=== PATIENT | female | born 1955 | race Caucasian/White ===

== ENCOUNTER 2017-01-13 14:01 | Emergency (ER) | payer SELFPAY ==
[~2017-01-13] VITALS: Ht 170.2 cm; Wt 100.8 kg
[2017-01-13 14:14] VITALS: BP 183/89; PULSE 73; RESP 18; TEMP 97.9; O2SAT 95
[2017-01-13] MEDS ORDERED: BISO10TA5 PO (14:14)
[2017-01-13] MEDS ORDERED: PLAV75TA29 PO (14:14)
[2017-01-13] MEDS ORDERED: AMLO2.5T PO (14:14)
[2017-01-13] MEDS ORDERED: ZANT150T2 PO (14:14)
[2017-01-13] MEDS ORDERED: SODIUM CHLORIDE 0.9% FLUSH 10 ML FLUSH IVF PRN (14:30)
[2017-01-13 14:33] VITALS: O2SAT 100
--- NOTE | 2017-01-13 14:33 | PD ---
HPI Chief Complaint: Chest Pain Time Seen by Provider: 14:20 Travel History International Travel<30 days: No Contact w/Intl Traveler<30days: No Traveled to known affect area: No History of Present Illness HPI The patient was seen and examined in the presence of the nurse. Patient complains of chest pain. Patient was feeling fine today and then had a spell of chest pain over the center sternum area. It lasted 3 minutes and resolved. It is not returned. No shortness of breath or productive cough or chest wall injury or fever or presyncopal symptoms. She feels fine now. She does have history of anxiety problems. Pain was described as a brief sharp stabbing type pain. Pain is not pleuritic. She has no history of cardiac or pulmonary disease. She had a normal stress test 2 years ago per her report. No alleviating factors to the chest pain. It resolved spontaneously. Severity was mild to moderate PFSH Past Medical History Hx Anticoagulant Therapy: Yes Cardiovascular Problems: Yes Cerebrovascular Accident: Yes Diminished Hearing: No Hypertension: Yes Immunizations Current: Yes Tetanus Vaccination: Unknown Influenza Vaccination: Yes ?: Not Past Surgical History Cholecystectomy: Yes Social History Alcohol Use: No Tobacco Use: No Substance Use: No Allergies-Medications (Allergen,Severity, Reaction): Coded Allergies: No Known Allergies (Unverified , 01/13/17) Reported Meds & Prescriptions Reported Meds & Active Scripts Active Reported Zantac (Ranitidine HCl) 150 Mg Tab 150 Mg PO BID Amlodipine (Amlodipine Besylate) 2.5 Mg Tab 2.5 Mg PO DAILY Bisoprolol (Bisoprolol Fumarate) 10 Mg Tab 10 Mg PO DAILY Plavix (Clopidogrel Bisulfate) 75 Mg Tab 75 Mg PO DAILY Review of Systems General / Constitutional: No: Fever Eyes: No: Visual changes HENT: No: Headaches Cardiovascular: Positive: Chest Pain or Discomfort Respiratory: No: Shortness of Breath Gastrointestinal: No: Abdominal Pain Genitourinary: No: Dysuria Musculoskeletal: No: Pain Skin: No Rash Neurologic: No: Weakness Psychiatric: Positive: Anxiety, No: Depression Endocrine: No: Polydipsia Hematologic/Lymphatic: No: Easy Bruising Physical Exam Narrative GENERAL: Well-nourished, well-developed patient in no apparent distress. SKIN: Focused skin assessment reveals no rash and nodules. Skin is Warm and dry. HEAD: Atraumatic. Normocephalic. EYES: Pupils equal and round. No scleral icterus. No injection or drainage. ENT: No nasal bleeding or discharge. Mucous membranes pink and moist. NECK: Trachea midline. No JVD. CARDIOVASCULAR: Regular rate and rhythm. No murmur appreciated. RESPIRATORY: No accessory muscle use. Clear to auscultation. Breath sounds equal bilaterally. GASTROINTESTINAL: Abdomen soft, non-tender, nondistended. Hepatic and splenic margins not palpable. MUSCULOSKELETAL: No obvious deformities. No clubbing. No cyanosis. No edema. NEUROLOGICAL: Awake and alert. No obvious cranial nerve deficits. Motor grossly within normal limits. Normal speech. PSYCHIATRIC: Appropriate mood and affect; insight and judgment normal. Data Data Last Documented VS Vital Signs Date Time Temp Pulse Resp B/P Pulse Ox O2 Delivery O2 Flow Rate FiO2 01/13/17 14:33 100 Room Air 01/13/17 14:17 75 01/13/17 14:14 97.9 18 183/89 Orders Electrocardiogram (01/13/17 14:28) Basic Metabolic Panel (Bmp) (01/13/17 14:28) Ckmb (Isoenzyme) Profile (01/13/17 14:28) Complete Blood Count With Diff (01/13/17 14:28) Prothrombin Time / Inr (Pt) (01/13/17 14:28) Act Partial Throm Time (Ptt) (01/13/17 14:28) Troponin I (01/13/17 14:28) Chest, Single Ap (01/13/17 14:28) Ecg Monitoring (01/13/17 14:28) Iv Access Insert/Monitor (01/13/17 14:28) Oximetry (01/13/17 14:28) Sodium Chloride 0.9% Flush (Ns Flush) (01/13/17 14:30) CKMB (01/13/17 14:40) CKMB% (01/13/17 14:40) Labs Laboratory Tests Test 01/13/17 14:40 White Blood Count 6.2 TH/MM3 Red Blood Count 5.18 MIL/MM3 Hemoglobin 15.4 GM/DL Hematocrit 46.1 % Mean Corpuscular Volume 89.1 FL Mean Corpuscular Hemoglobin 29.8 PG Mean Corpuscular Hemoglobin 33.4 % Concent Red Cell Distribution Width 13.6 % Platelet Count 227 TH/MM3 Mean Platelet Volume 9.3 FL Neutrophils (%) (Auto) 46.2 % Lymphocytes (%) (Auto) 36.7 % Monocytes (%) (Auto) 8.6 % Eosinophils (%) (Auto) 7.6 % Basophils (%) (Auto) 0.9 % Neutrophils # (Auto) 2.8 TH/MM3 Lymphocytes # (Auto) 2.3 TH/MM3 Monocytes # (Auto) 0.5 TH/MM3 Eosinophils # (Auto) 0.5 TH/MM3 Basophils # (Auto) 0.1 TH/MM3 CBC Comment DIFF FINAL Differential Comment Prothrombin Time 10.4 SEC Prothromb Time International 0.9 RATIO Ratio Activated Partial 27.2 SEC Thromboplast Time Sodium Level 141 MEQ/L Potassium Level 3.4 MEQ/L Chloride Level 102 MEQ/L Carbon Dioxide Level 31.3 MEQ/L Anion Gap 8 MEQ/L Blood Urea Nitrogen 12 MG/DL Creatinine 0.74 MG/DL Estimat Glomerular Filtration 79 ML/MIN Rate Random Glucose 117 MG/DL Calcium Level 8.5 MG/DL Total Creatine Kinase 169 U/L Creatine Kinase MB 2.5 NG/ML Troponin I LESS THAN 0.02 NG/ML [facility] Medical Decision Making Medical Screen Exam Complete: Yes Emergency Medical Condition: Yes Medical Record Reviewed: Yes Differential Diagnosis Differential diagnosis includes [place], angina, pericarditis, pleurisy, GERD, anxiety. Narrative Course I have reviewed the patient's electronic medical record. IV placed I reviewed the EKG which shows sinus rhythm but no ST elevation I reviewed the chest x-ray which is normal Extended cardiac monitoring shows sinus rhythm without ectopy CBC is normal Metabolic profile is normal CK is normal Troponin is normal Coagulation studies are normal Emergency room workup is negative. Her pain is very atypical and not consistent with cardiac pain. I do not have clinical suspicion of PE. Her symptoms lasted only 3 minutes and resolved and have not recurred one single time. She is breathing fine. She is to discuss this with her family physician and get close follow-up and return if she worsens Diagnosis Primary Impression: Chest pain in adult Additional Instructions: The patient was advised to follow up with their physician and return if they worsen. Med/Other Pt SpecificInfo: Other Disposition: 01 DISCHARGE HOME Condition: Stable Zeb Tavarez MD Jan 13, 2017 14:33
[2017-01-13 14:45] LABS: AUTOMATED NEUTROPHIL # 2.8 TH/MM3 (1.8-7.7); BASOPHIL # 0.1 TH/MM3 (0-0.2); BASOPHIL % 0.9 % (0.0-2.0); EOSINOPHIL # 0.5 TH/MM3 (0-0.4); EOSINOPHIL % 7.6 % (0.0-4.0); HEMATOCRIT 46.1 % (35.0-46.0); HEMO FLAGS DIFF FINAL; LYMPH % 36.7 % (9.0-44.0); LYMPHOCYTE # 2.3 TH/MM3 (1.0-4.8); MEAN CELL VOLUME 89.1 FL (80.0-100.0); MEAN CORPUSCULAR HEMOGLOBIN 29.8 PG (27.0-34.0); MEAN CORPUSCULAR HGB CONC 33.4 % (32.0-36.0); MONO % 8.6 % (0.0-8.0); NEUT % 46.2 % (16.0-70.0); PLATELET COUNT 227 TH/MM3 (150-450); RED BLOOD COUNT 5.18 MIL/MM3 (4.00-5.30); RED CELL DISTRIBUTION WIDTH 13.6 % (11.6-17.2); WHITE BLOOD COUNT 6.2 TH/MM3 (4.0-11.0)
[2017-01-13 14:52] LABS: CHLORIDE 102 MEQ/L (98-107); POTASSIUM 3.4 MEQ/L (3.5-5.1); SODIUM (NA) 141 MEQ/L (136-145)
[2017-01-13 14:55] LABS: ANION GAP 8 MEQ/L (5-15); BICARBONATE 31.3 MEQ/L (21.0-32.0); BLOOD UREA NITROGEN 12 MG/DL (7-18)
[2017-01-13 14:57] LABS: APTT (PATIENT) 27.2 SEC (24.3-30.1); INTERNATIONAL NORMALIZED RATIO 0.9 RATIO; PROTHROMBIN TIME - PATIENT 10.4 SEC (9.8-11.6)
[2017-01-13 14:58] LABS: GLOMERULAR FILTRATION RATE 79 ML/MIN (>89)
[2017-01-13 15:01] LABS: CREATINE KINASE 169 U/L (26-192)
--- NOTE | 2017-01-13 15:04 | RADRPT ---
EXAM DATE/TIME: 01/13/2017 14:47 [facility] COMPARISON: No previous studies available for comparison. INDICATIONS : Chest pain today. MEDICAL HISTORY : None. SURGICAL HISTORY : None. ENCOUNTER: Initial ACUITY: 1 day PAIN SCORE: 4/10 LOCATION: Bilateral chest FINDINGS: A single view of the chest demonstrates the lungs to be symmetrically aerated without evidence of mas s, infiltrate or effusion. The cardiomediastinal contours are unremarkable. Osseous structures are intact. CONCLUSION: 1. No acute cardiomegaly disease. Jeremiah Jung MD on January 13, 2017 at 15:02 Board Certified Radiologist. This report was verified electronically.
[2017-01-13 15:14] LABS: CKMB 2.5 NG/ML (0.5-3.6)
[2017-01-13 15:19] VITALS: BP 163/78; PULSE 68; RESP 16; O2SAT 96
--- NOTE | 2017-01-13 16:12 | EKG ---
Date Performed: 01/13/2017 Time Performed: 14:09:07 PTAGE: 61 years EKG: Sinus rhythm BORDERLINE LEFT AXIS DEVIATION BORDERLINE ECG Nonspecific T wave changes NO PREVIOUS TRACING DOCTOR: Phillip Dumas Interpretating Date/Time 01/13/2017 16:12:06
== END 2017-01-13 15:28 | disposition home or self-care (01) ==
LOC: PHED 14:01
DX: R07.9 Chest pain, unspecified (principal); F41.9 Anxiety disorder, unspecified; I10 Essential (primary) hypertension
CPT/HCPCS: 71010; 80048; 82550; 82552; 84484; 85025; 85610; 85730; 93005